=== PATIENT | female | born 1990 | race Two or more races ===

== ENCOUNTER 2024-03-11 05:32 | Inpatient (IN) ==
[2024-03-11] MEDS: Lactated Ringers 1000 ml BAG 1,000 ML IV ONE (06:11)
[2024-03-11 06:23] LABS: ABS Basophils 0.1 10^3/uL (0.0-0.1); ABS Eosinophils 0.1 10^3/uL (0.0-0.5); ABS Lymphocytes 1.8 10^3/uL (1.0-4.8); ABS Monocytes 0.7 10^3/uL (0.0-0.9); ABS Nucleated RBC 0.01 10^3/ul; Eosinophil % 0.7 %; Hemoglobin 11.5 g/dL (11.5-14.3); Lymphocyte % 17.2 %; Mean Corpuscular Hemoglobin 26.9 pg (27-33); Mean Corpuscular Hgb Conc 33.7 g/dL (31-36); Mean Corpuscular Volume 79.9 fL (80-97); Mean Platelet Volume 7.7 fL (7.5-11.2); Nucleated Red Blood Cells % 0.1 %/100WBC (0.0-0.8); Platelet Count 300 10^3/uL (150-450); Red Blood Count 4.26 10^6/uL (3.63-4.92); Red Cell Distribution Width 16.3 % (12-17); White Blood Count 10.7 10^3/uL (3.8-11.8)
[2024-03-11] MEDS ORDERED: Morphine PF AMP (0.5MG/ML) 5 MG/10 ML AMP ONE (07:21)
[2024-03-11] MEDS ORDERED: Metoclopramide 5 MG/ML VIAL (10 mg) ONE (07:21)
[2024-03-11] MEDS ORDERED: Ondansetron 4 mg VIAL 2 MG/ML 2 ml VIAL ONE (07:21)
[2024-03-11] MEDS ORDERED: Oxytocin 10 UNITS/ML 1 ML VIAL ONE (07:23)
[2024-03-11] MEDS ORDERED: fentaNYL 100 mcg/2 ml 50 MCG/ML VIAL ONE (07:45)
[2024-03-11] MEDS: ceFOXitin 2 GM IVPREMIX 2 GM/50 ML BAG IVPB ONE (07:51)
[2024-03-11] MEDS: Sodium Citrate/Citric Acid LIQ 15 ML UDC PO ONE (07:52)
[2024-03-11] MEDS ORDERED: Ondansetron 4 mg VIAL 2 MG/ML 2 ml VIAL IV PRN (08:07)
[2024-03-11] MEDS ORDERED: Metoclopramide 5 MG/ML VIAL (10 mg) IV PRN (08:07)
[2024-03-11] MEDS ORDERED: Acetaminophen IV 1 GM/100ML 1,000 MG/100 ML BAG IV PRN (08:07)
[2024-03-11] MEDS ORDERED: Naloxone 0.4 mg VIAL 0.4 mg/ml 1 ml VIAL IV PUSH PRN (08:07)
[2024-03-11] MEDS ORDERED: Acetaminophen IV 1 GM/100ML 1,000 MG/100 ML BAG IV ONE (08:18)
[2024-03-11] MEDS ORDERED: Phenylephrine 40 mcg/mL 10mL (400mcg) SYRINGE ONE (08:25)
[2024-03-11] MEDS ORDERED: Witch Hazel PAD JAR TOPICAL PRN (09:28)
[2024-03-11] MEDS ORDERED: Glycerin ADULT 2.4 gm SUPP PR PRN (09:28)
[2024-03-11] MEDS ORDERED: Lactated Ringers 1000 ml BAG 1,000 ML IV SCH (10:00)
[2024-03-11] MEDS: Oxytocin in LR 20,000 MILLI.UNIT/1,000 ML BAG IV SCH (11:10)
[2024-03-11] MEDS: Buffered Lidocaine 1% SYRIN 1 ml INTRADERM ONE (11:12)
[2024-03-11] MEDS: Lactated Ringers 1000 ml BAG 1,000 ML IV SCH (11:13)
[2024-03-11 13:45] LABS: Urine Appearance Clear; Urine Bilirubin Negative (Negative); Urine Blood Negative (Negative); Urine Color Colorless; Urine Glucose Negative (Negative); Urine Ketones Negative (Negative); Urine Nitrite Negative (Negative); Urine Protein Negative (Negative); Urine Specific Gravity 1.007 (1.002-1.030); Urine Urobilinogen Negative (Negative)
[2024-03-11 14:06] LABS: Urine Benzodiazepine Screen None Detected (None Detect); Urine Cannabinoids Screen None Detected (None Detect); Urine Opiates Screen None Detected (None Detect)
[2024-03-11] MEDS: Polyethylene Glycol 3350 17 GM PACKET PO PRN (21:09)
[2024-03-12 07:03] LABS: ABS Eosinophils 0.1 10^3/uL (0.0-0.5); ABS Lymphocytes 1.8 10^3/uL (1.0-4.8); ABS Monocytes 0.7 10^3/uL (0.0-0.9); ABS Neutrophils 6.5 10^3/uL (1.5-7.6); Eosinophil % 1.2 %; Hemoglobin 10.5 g/dL (11.5-14.3); Lymphocyte % 19.6 %; Mean Corpuscular Hemoglobin 27.2 pg (27-33); Mean Corpuscular Hgb Conc 33.8 g/dL (31-36); Mean Corpuscular Volume 80.4 fL (80-97); Mean Platelet Volume 7.4 fL (7.5-11.2); Platelet Count 227 10^3/uL (150-450); Red Blood Count 3.86 10^6/uL (3.63-4.92); Red Cell Distribution Width 16.9 % (12-17); White Blood Count 9.2 10^3/uL (3.8-11.8)
[2024-03-13 08:10] VITALS: BP 110/61
== END 2024-03-13 12:37 | disposition home or self-care (01) | DRG 788 ==
LOC: MCHOB 05:32
PROVIDERS: ADMIT Obstetrics & Gynecology; ATTEND Obstetrics & Gynecology